=== PATIENT | male | born 1955 | race Caucasian/White ===

== ENCOUNTER 2024-01-30 07:20 | Day surgery (SDC) | payer OTHER, BC ==
[2024-01-27 15:20] LABS: Anion Gap 7.4 mEq/L (5.0-15.0); Potassium 4.4 mEq/L (3.5-5.1)
[2024-01-27 15:28] LABS: Absolute Eosinophils 0.1 K/uL (0-0.5); Absolute Lymphocytes (CBC) 2.9 K/uL (0.7-4.9); Absolute Monocytes 0.5 K/uL (0.1-1.3); Absolute Neutrophil 3.1 K/uL (1.8-8.0); Basophils % 0.5 % (0-1.3); Eosinophils % 1.7 % (0-4.4); Hematocrit 40.1 % (39.6-49.0); Hemoglobin 14.1 g/dL (13.6-17.9); Lymphocytes % 43.3 % (15.3-44.8); MCH 32.2 pg (27.0-35.0); MCHC 35.1 g/dL (32.0-36.0); MCV 91.7 fL (80-100); MPV 8.7 fL (7.6-11.3); Monocytes % 7.3 % (3.3-12.3); Neutrophils % 47.2 % (41.7-73.7); Nucleated Red Blood Cells % 0.1 % (0-0); Platelets 229 thou/uL (152-406); RBC Red Blood Cell Count 4.37 M/uL (4.33-5.43); Red Cell Distribution Width 12.8 % (12.1-15.2)
--- NOTE | 2024-01-29 14:31 | EKG ---
Test Date: 2024-01-27 Test Time: 14:35:29 Demo Coordinator: RADU MEASUREMENT RESULTS: Intervals: Rate: 71 NM: 144 QRSD: 92 QT: 388 QTc: 421 [place]: P: 22 NM: 144 QRS: 1 T: 25 INTERPRETIVE STATEMENTS: Normal sinus rhythm Normal ECG No previous ECG available for comparison Electronically Signed On 01-29-24 14:24:33 CDT by Beto Ledezma
[2024-01-30] MEDS: Ringers Lactate 1,000 ML IV ONE (07:43)
[2024-01-30] MEDS ORDERED: propofoL 200 MG/20 ML VIAL IV ONE (08:50)
[2024-01-30] MEDS ORDERED: GLYCOPYRROLATE 0.2 MG/ML SYR ONE (08:50)
[2024-01-30] MEDS ORDERED: LIDOCAINE 1% MPF 30 ML VIAL ONE (08:50)
[2024-01-30 12:28] VITALS: BP 130/74; TEMP 97.5; O2SAT 100
== END 2024-01-30 10:15 | disposition home or self-care (01) ==
LOC: OR 07:20
PROVIDERS: ATTEND Surgery
PROC: 0DBN8ZX Excision of Sigmoid Colon, Via Natural or Artificial Opening Endoscopic, Diagnostic (ICD-10-PCS; principal; 2024-01-30 08:30)
DX: Z12.11 Encounter for screening for malignant neoplasm of colon (principal); K57.30 Diverticulosis of large intestine without perforation or abscess without bleeding; K64.8 Other hemorrhoids; N42.9 Disorder of prostate, unspecified; K63.5 Polyp of colon
CPT/HCPCS: 93005; 85025; 80048; 36415; 88304; 45380; J2704; J2001; J7120; 88305